=== PATIENT | male | born 1960 | race Caucasian/White ===

== ENCOUNTER 2019-05-29 06:44 | Outpatient (CLI) | payer OTHER, SELFPAY ==
--- NOTE | 2019-05-29 | USCV_ITS ---
Elmer Ortiz Age: 59 Gender: M : 1960 Exam Date: 05/29/2019 08:08 Ordering Phys: Elmer Lucero MD Technologist: Exam Location: [facility] [place] Indication: HTN BP: 124 / 72 HR: 65 Rhythm: Sinus Technical Quality: Adequate MEASUREMENTS (Male / Female) Normal Values 2D ECHO LV Diastolic Diameter PLAX 4.9 cm 4.2 - 5.9 / 3.9 - 5.3 cm LV Systolic Diameter PLAX 3.7 cm IVS Diastolic Thickness 1.1 cm 0.6 - 1.0 / 0.6 - 0.9 cm IVS Systolic Thickness 1.2 cm LVPW Diastolic Thickness 0.9 cm 0.6 - 1.0 / 0.6 - 0.9 cm LVPW Systolic Thickness 1.6 cm LVOT Diameter 2.2 cm LV Ejection Fraction 2D Teich 48.4 % LV Ejection Fraction MOD 2C 32.0 % LV Ejection Fraction 2C AL 29.5 % LA Diameter 3.4 cm LA Width 4.7 cm LA Height 4.4 cm RA Width 3.8 cm RA Height 4.9 cm Aorta at Sinotubular Diameter 2.9 cm M-MODE LV Diastolic Diameter MM 5.5 cm 4.2 - 5.9 / 3.9 - 5.3 cm LV Systolic Diameter MM 3.7 cm LV Ejection Fraction MM Teich 59.1 % IVS Diastolic Thickness MM 0.9 cm 0.6 - 1.0 / 0.6 - 0.9 cm IVS Systolic Thickness MM 1.4 cm LVPW Diastolic Thickness MM 1.0 cm 0.6 - 1.0 / 0.6 - 0.9 cm LVPW Systolic Thickness MM 1.6 cm RV Diastolic Diameter MM 2.4 cm Aortic Annulus Diameter 3.3 cm LA Ao Ratio MM 1.0 MV E Point Septal Separation 0.6 cm DOPPLER AV Peak Velocity 106.0 cm/s LVOT Peak Velocity 80.0 cm/s AV Area Cont Eq vti 3.2 cm squared AV Area Cont Eq pk 2.8 cm squared MV Area PHT 5.1 cm squared Mitral E to A Ratio 0.9 MV E' Velocity 7.0 cm/s Mitral E to MV E' Ratio 7.5 Mitral E to LV E' Lateral Ratio 8.9 Mitral E to LV E' Septal Ratio 6.5 TR Peak Velocity 145.0 cm/s TR Peak Gradient 8.4 mmHg TV Peak E Velocity 90.0 cm/s Right Atrial Pressure 3.0 mmHg Pulmonary Artery Systolic Pressu 11.4 mmHg FINDINGS Left Ventricle Normal left ventricular cavity size. Normal left ventricular systolic function. No regional wall motion abnormalities. Left ventricular ejection fraction is estimated at 59 %. Normal diastolic function. Right Ventricle The right ventricle is normal in size and function. Right Atrium The right atrium is normal in size. Left Atrium The left atrium is normal in size. Mitral Valve Structurally normal mitral valve without significant stenosis or prolapse. There is no mitral regurgitation. Aortic Valve Structurally normal aortic valve without significant sclerosis or stenosis. There is no aortic regurgitation. Tricuspid Valve Structurally normal tricuspid valve without significant stenosis or regurgitation. Pulmonary artery systolic pressure is normal. Pulmonic Valve Structurally normal pulmonic valve without significant stenosis. There is no pulmonic regurgitation. Pericardium Normal pericardium without effusion. Aorta Normal ascending aorta dimension. CONCLUSIONS 1-Normal left ventricular cavity size. Normal left ventricular systolic function. No regional wall motion abnormalities. Left ventricular ejection fraction is estimated at 59 %. Normal diastolic function. 2-No significant valve abnormalities. 3-There is no pericardial effusion. 4-Pulmonary artery systolic pressure is within normal limits. 5-No significant change since the prior echocardiogram study of 04/02/2018. Jefferson Durbin MD (Electronically Signed) Final Date: 29 May 2019 12:53 S
== END 2019-05-29 06:45 | disposition home or self-care (01) ==
LOC: RAD 06:52
PROVIDERS: Family Provider Nurse Practitioner Family; PCP Family Medicine; Visit Provider Family Medicine
DX: I10 Essential (primary) hypertension (principal)
CPT/HCPCS: 93306

== ENCOUNTER 2020-07-20 12:37 | Emergency (ER) | payer OTHER, SELFPAY ==
[2020-07-20 12:55] VITALS: BP 147/83; PULSE 85; RESP 18; TEMP 36.7; O2SAT 98; BMI 34.8
--- NOTE | 2020-07-20 12:56 | XRR_ITS ---
PROCEDURE INFORMATION: Exam: XR Left Hand Exam date and time: 07/20/2020 12:57 PM Age: 60 years old Clinical indication: Injury or trauma; Other: Nail gun; Puncture; Left; Index finger and middle finger; Additional info: Nail through fingers TECHNIQUE: Imaging protocol: XR Left hand. Views: 3 or more views. COMPARISON: No relevant prior studies available. FINDINGS: Bones/joints: A metal nail extends transversely through the index and middle fingers across the shafts of the proximal phalanxes. Soft tissues: Soft tissue swelling. XR/XR hand LT min 3V* [id number] IMPRESSION: A metal nail extends transversely through the index and middle fingers at the level of the mid shaft of the proximal phalanxes.
--- NOTE | 2020-07-20 13:24 | W.ED.EXTPRO ---
Documented by User: JUVENAL Victoria 07/20/20 18:27 HPI - Extremity Problem General: Chief complaint: Extremity Injury, Upper Stated complaint: NAIL THROUGH LEFT HAND Time Seen by Provider: 07/20/20 13:08 [facility] PFSH: Medical History CAD (coronary artery disease) Hyperlipidemia Family History Other Alcohol abuse CAD (coronary artery disease) CHF (congestive heart failure) Diabetes Myocardial infarction Osteoarthritis Stroke Social History Smoking and tobacco status: former smoker Alcohol intake: never Procedures Nerve Block Nerve Block 1: Time out performed: Yes Local Anesthetic: lidocaine 1% Amount of anesthesia used (mL): 10 Side: left Nerve Blocks: digital (3rd finger) Procedure Successful: Yes Patient Tolerated Procedure: well Complications: none Nerve Block 2: Time out performed: Yes Local Anesthetic: lidocaine 1% Amount of anesthesia used (mL): 10 Side: left Nerve Blocks: digital (2nd finger, digit) Procedure Successful: Yes Patient Tolerated Procedure: well Complications: none Course Vital Signs: Vital signs: Vital Signs Temperature 98.1 F 07/20/20 12:55 Pulse Rate 85 07/20/20 12:55 Respiratory Rate 16 07/20/20 14:30 Blood Pressure 147/83 07/20/20 12:55 Pulse Oximetry 98 07/20/20 12:55 Discharge Plan Discharge Patient Disposition: Home Clinical Impression: Foreign body (FB) in soft tissue, Need for tetanus, diphtheria, and acellular pertussis (Tdap) vaccine Condition: Stable Prescriptions: New oxycodone 5 mg tablet 5 mg PO Q6H PRN (Reason: pain) Qty: 10 RF: 0 Keflex 500 mg capsule 500 mg PO BID 7 Days Qty: 28 RF: 0 No Action fluoxetine 60 mg tablet 60 mg PO DAILY@0900 RF: 0 nitroglycerin [Nitrostat] 0.4 mg tablet, sublingual 0.4 mg SUBLINGUAL Q5M PRN (Reason: CHEST PAINS) RF: 0 clonazepam 1 mg tablet 1 mg PO DAILY@2100 RF: 0 gabapentin 300 mg capsule 300 mg PO DAILY@2100 RF: 0 prasugrel 10 mg tablet 10 mg PO DAILY@0900 RF: 0 ibuprofen 200 mg Tablet 200 mg PO Q6H PRN (Reason: Pain) RF: 0 metoprolol succinate 25 mg tablet extended release 24 hr 12.5 mg PO DAILY@2100 RF: 0 ezetimibe 10 mg tablet 10 mg PO DAILY@0900 RF: 0 Discharge Orders: Discharge ED (Routine); Ordered 07/20/20 Ordered By: Katelin Heath Referrals: Nadine Cornell NP [Family Provider] - Elmer Lucero MD [Primary Care Provider] - Discharge Diet: Usual diet Discharge Activity: Limit activity as instructed Patient Instructions: Soft Tissue Foreign Body (ED), Puncture Wound (ED), Contusion in Adults (ED), Opioid Safety, Sling - Wearing Activity Restrictions/Additional Instructions: 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 Kendall for wound recheck. He will need to keep the left hand elevated as much as possible, swelling is expected but should never be red or with increased pain. Elevation of the hand will help with swelling and pain. Limit use of the left hand until follow-up with Dr. Kendall If you develop fever, redness increased swelling and pain of the right left hand, you will need to return to the emergency department. May wash briefly with soap and water, use bottled water as well water can have contaminants. May leave open to air if not draining, may wrap if needed loosely Avoid constriction, such as tight clothing tight dressing or other items that can cause swelling to the hand. Take antibiotics until all gone, even if feeling better Coding Level of Care Code ED Marketing Project Coordinator for Chg Fwd Exam Detailed Documented by User: Yuli Rojas MD 07/21/20 19:46 HPI - Extremity Problem General: Chief complaint: Extremity Injury, Upper Stated complaint: NAIL THROUGH LEFT HAND Time Seen by Provider: 07/20/20 13:08 Source: patient History of Present Illness: HPI Narrative: 60-year-old male came to the ED by POV shortly after he accidentally discharged his nail gun, nailing his second and third finger together with a 4 inch nail. He still had movement and sensation of all his fingers immediately after the accident. . His tetanus shot is not up-to-date. On prasugrel daily for CAD. Associated symptoms: Deny chest pain, fever(s) or rash Review of Systems General: Reports: 10 or more systems reviewed and unremarkable except in HPI and below Const: Denies: fever(s), chills or body aches Eyes: Denies: change in vision or blurry vision Card: Denies: chest pain, palpitations or irregular heart rhythm GI: Denies: nausea or vomiting Musc: Reports: extremity pain; Denies: neck pain, back pain or extremity swelling Skin/Breast: Denies: rash, pruritus or erythema Neuro: Denies: headache(s), numbness in extremities, weakness in extremities, dizziness or confusion Wilman/Lymph: Denies: easy bruising or easy bleeding PFS ED PFSH: Medical History CAD (coronary artery disease) Hyperlipidemia Family History Other Alcohol abuse CAD (coronary artery disease) CHF (congestive heart failure) Diabetes Myocardial infarction Osteoarthritis Stroke Social History Smoking and tobacco status: former smoker Alcohol intake: never Physical Exam Const: COMMON NORMALS: no acute distress, patient oriented x3 and alert EXAM LIMITATIONS: no altered mental status GENERAL APPEARANCE: cooperative and comfortable; not in distress, not lethargic, not ill appearing and no odor of alcohol detected ORIENTATION/CONSCIOUSNESS: not lethargic HENMT: COMMON NORMALS: normocephalic and atraumatic HEAD & SCALP: normocephalic and atraumatic FACE & SINUS: face symmetric Eye: COMMON NORMALS: Equal, round and reactive pupils present, EOMs intact bilaterally and conjunctivae normal CONJUNCTIVA: Yes conjunctivae normal PUPIL: Yes Equal, round and reactive pupils present Resp: COMMON NORMALS: normal respiratory effort EFFORT & INSPECTION: No tachypneic, No respiratory distress and No labored Extremity: LEFT UPPER EXTREMITY: Yes hand & digits (No active bleeding.) Left hand and digits: Yes inspection (Nail impaled through the volar aspects of the 2nd and 3rd prox phala) and Yes neurovascular exam (Fingers well perfused, sensation intact, movement limited by nail) Neuro: COMMON NORMALS: patient oriented x3 SENSORIUM/ORIENTATION: Yes alert and No lethargic Procedures Foreign Body Removal Time Out Performed: yes Site: left and hand Description of foreign body: other (Nail) Sedation/Analgesia: other (Local anesthesia) Technique: manual removal and removal with forceps Confirmed by:: radiograph Complications: none Post-procedure exam: awake, alert Neurovascular: normal distal pulse and normal capillary fill Course Vital Signs: Vital signs: Vital Signs Temperature 98.1 F 07/20/20 12:55 Pulse Rate 85 07/20/20 12:55 Respiratory Rate 16 07/20/20 14:30 Blood Pressure 147/83 07/20/20 12:55 Pulse Oximetry 98 07/20/20 12:55 MDM - Extremity (Nontraumatic) MDM Narrative: Medical decision making narrative: I performed an independent examination of this patient, and performed removal of the nail from the second and third left fingers. Patient tolerated the procedure well. He will be on antibiotics and will follow up with hand surgery in the next few days. Tetanus booster administered. Discharge Plan Discharge Patient Disposition: Home Clinical Impression: Foreign body (FB) in soft tissue, Need for tetanus, diphtheria, and acellular pertussis (Tdap) vaccine Condition: Stable Prescriptions: New oxycodone 5 mg tablet 5 mg PO Q6H PRN (Reason: pain) Qty: 10 RF: 0 Keflex 500 mg capsule 500 mg PO BID 7 Days Qty: 28 RF: 0 No Action fluoxetine 60 mg tablet 60 mg PO DAILY@0900 RF: 0 nitroglycerin [Nitrostat] 0.4 mg tablet, sublingual 0.4 mg SUBLINGUAL Q5M PRN (Reason: CHEST PAINS) RF: 0 clonazepam 1 mg tablet 1 mg PO DAILY@2099 RF: 0 gabapentin 300 mg capsule 300 mg PO DAILY@2100 RF: 0 prasugrel 10 mg tablet 10 mg PO DAILY@0900 RF: 0 ibuprofen 200 mg Tablet 200 mg PO Q6H PRN (Reason: Pain) RF: 0 metoprolol succinate 25 mg tablet extended release 24 hr 12.5 mg PO DAILY@2100 RF: 0 ezetimibe 10 mg tablet 10 mg PO DAILY@0900 RF: 0 Discharge Orders: Discharge ED (Routine); Ordered 07/20/20 Ordered By: Katelin Heath Referrals: Nadine Cornell NP [Family Provider] - Elmer Lucero MD [Primary Care Provider] - Discharge Diet: Usual diet Discharge Activity: Limit activity as instructed Patient Instructions: Soft Tissue Foreign Body (ED), Puncture Wound (ED), Contusion in Adults (ED), Opioid Safety, Sling - Wearing Activity Restrictions/Additional Instructions: 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 Kendall for wound recheck. He will need to keep the left hand elevated as much as possible, swelling is expected but should never be red or with increased pain. Elevation of the hand will help with swelling and pain. Limit use of the left hand until follow-up with Dr. Kendall If you develop fever, redness increased swelling and pain of the right left hand, you will need to return to the emergency department. May wash briefly with soap and water, use bottled water as well water can have contaminants. May leave open to air if not draining, may wrap if needed loosely Avoid constriction, such as tight clothing tight dressing or other items that can cause swelling to the hand. Take antibiotics until all gone, even if feeling better Coding Level of Care Code ED Marketing Project Coordinator for Chg Fwd Exam Detailed
--- NOTE | 2020-07-20 14:08 | XRR_ITS ---
PROCEDURE INFORMATION: Exam: XR Left Hand Exam date and time: 07/20/2020 2:47 PM Age: 60 years old Clinical indication: Trauma with nail gun. Puncture involving left index and middle fingers. Status post foreign body removal. TECHNIQUE: Imaging protocol: XR Left hand. Views: 3 or more views. COMPARISON: CR XR hand LT min 3V* [id number] 07/20/2020 1:11 PM FINDINGS: There has been interval removal of a nail that previously extended through the proximal phalanges of the index and 3rd fingers. There are tiny residual metallic foreign bodies in the volar soft tissues. There is a tiny fracture fragment along the ulnar aspect of the mid-diaphysis of the proximal phalanx of the 3rd finger. Mild scattered degenerative changes. The scapholunate and lunotriquetral intervals are maintained. No chondrocalcinosis is seen. XR/XR hand LT 2V [id number] IMPRESSION: There has been interval removal of a nail that previously extended through the proximal phalanges of the index and 3rd fingers. There are tiny residual metallic foreign bodies in the volar soft tissues. There is a tiny fracture fragment along the ulnar aspect of the mid-diaphysis of the proximal phalanx of the 3rd finger.
[2020-07-20] MEDS: cephALEXin 500 mg Capsule PO (14:09)
[2020-07-20] MEDS: tetanus-dipt-pertussis 0.5 mL SDV IM (14:10)
[2020-07-20] MEDS: lidocaine 1% INJ 20 mL INJECTION ×2 (14:23→14:32)
[2020-07-20 14:30] VITALS: RESP 16
[2020-07-20] MEDS: oxyCODONE-APAP 5-325 mg Tablet 1 TAB PO (14:30)
--- NOTE | 2020-07-22 08:48 | DCPLANNER ---
general manager in training had message to schedule a followup appointment for patient with ortho. general manager in training called the ortho clinic, spoke with Manda, gave clinic patients information. general manager in training was told that patients information would be printed and reviewed. Clinic will call patient with appointment information.
--- NOTE | 2020-07-24 14:01 | DCPLANNER ---
Patient had a follow up appointment scheduled for 07.23.[address] Kendall at [facility] - patient did attend appointment.
== END 2020-07-20 15:04 | disposition home or self-care (01) ==
PROVIDERS: Emergency Provider Family Medicine; Family Provider Nurse Practitioner Family; PCP Family Medicine
DX: S61.442A Puncture wound with foreign body of left hand, initial encounter (principal); W29.4XXA Contact with nail gun, initial encounter; Z23 Encounter for immunization; I25.10 Atherosclerotic heart disease of native coronary artery without angina pectoris; E78.5 Hyperlipidemia, unspecified; Z87.891 Personal history of nicotine dependence
CPT/HCPCS: 73120; 73130; 90471; 90715; 99283

== ENCOUNTER → 2021-01-24 12:58 | Outpatient (BNVA) | payer OTHER, SELFPAY | PROVIDERS: Family Provider Nurse Practitioner Family; PCP Family Medicine; Visit Provider Nurse Practitioner Family | DX: Z20.822 Contact with and (suspected) exposure to COVID-19 (principal) | CPT/HCPCS: 87426; 87635 ==

== ENCOUNTER 2021-06-23 11:35 | Outpatient (CLI) | payer OTHER, SELFPAY ==
--- NOTE | 2021-06-23 11:50 | XR_ITS ---
WS: [id number] XR chest 2V* [id number] REASON FOR EXAM: SHORTNESS OF BREATH FINDINGS: Chest appears relatively unchanged compared to 05/02/2019. Moderate tortuosity the thoracic aorta wit hout aneurysmal dilatation. Calcified granulomatous disease in both hemithoraces and the mediastinum. No acute pulmonary parenchy mal or pleural abnormality is identified. Bone density appears somewhat decreased for age. Mild changes of degenerative spondylosis in the mid and lower thoracic spine. XR/XR chest 2V* [id number] IMPRESSION: No acute chest abnormality.
== END 2021-06-23 11:36 | disposition home or self-care (01) ==
PROVIDERS: PCP Nurse Practitioner Family; Visit Provider Nurse Practitioner Family
DX: R06.02 Shortness of breath (principal)
CPT/HCPCS: 71046

== ENCOUNTER → 2022-09-28 07:43 | Outpatient (BNVA) | payer OTHER, SELFPAY | PROVIDERS: PCP Family Medicine; Visit Provider Specialist | DX: M17.11 Unilateral primary osteoarthritis, right knee (principal) | CPT/HCPCS: 99204 ==

== ENCOUNTER → 2022-09-28 07:48 | Outpatient (BNVA) | payer OTHER, SELFPAY | PROVIDERS: PCP Family Medicine; Visit Provider Specialist | DX: M17.11 Unilateral primary osteoarthritis, right knee (principal); M25.561 Pain in right knee; Z01.818 Encounter for other preprocedural examination | CPT/HCPCS: 73560; 73565 ==

== ENCOUNTER → 2022-09-30 11:25 | Outpatient (BNVA) | payer OTHER, SELFPAY | PROVIDERS: PCP Family Medicine; Visit Provider Internal Medicine Cardiovascular Disease | DX: Z01.810 Encounter for preprocedural cardiovascular examination (principal); I25.10 Atherosclerotic heart disease of native coronary artery without angina pectoris; E78.49 Other hyperlipidemia; M17.11 Unilateral primary osteoarthritis, right knee; F17.220 Nicotine dependence, chewing tobacco, uncomplicated | CPT/HCPCS: 99213 ==

== ENCOUNTER 2022-10-15 09:15 | Outpatient (CLI) | payer OTHER, SELFPAY ==
--- NOTE | 2022-10-15 09:30 | CT_ITS ---
WS: [id number] CT RIGHT KNEE, NONCONTRAST TECHNIQUE: Noncontrast CT of the RIGHT knee to include the RIGHT hip and ankle. [facility] CLINICAL INFORMATION: Right knee replacement with NANCY guidance COMPARISON: None. DLP: 948.[address] scans at [facility] use at least one of these dose optimization techniques: automated e xposure control; mA and/or kV adjustment per patient size (includes targeted exams where dose is matc hed to clinical indication); or iterative reconstruction. FINDINGS: Mild degenerative narrowing both hips. Normal pubic rami. Normal sigmoid colon. Prostate calcificatio n. Prostate measures 4.0 cm. Vascular calcification. Advanced osteoarthritis RIGHT knee with bone-on- bone articulation. Hypertrophic Patella. Moderate suprapatellar effusion. Soft tissue edema.Hypertrop hic changes along the joint line. CT/CT knee RT wo con* [id number] IMPRESSION: Images obtained for preoperative purposes.
== END 2022-10-15 09:16 | disposition home or self-care (01) ==
PROVIDERS: PCP Family Medicine; Visit Provider Specialist
DX: M17.11 Unilateral primary osteoarthritis, right knee (principal)
CPT/HCPCS: 73700; 99204

== ENCOUNTER 2022-10-27 06:59 | Outpatient (CLI) | payer OTHER, SELFPAY | END 2022-10-27 07:00 | disposition home or self-care (01) | LOC: RT 10-30 07:00 | PROVIDERS: PCP Family Medicine; Visit Provider Specialist | DX: Z01.818 Encounter for other preprocedural examination (principal) | CPT/HCPCS: 93005 ==

== ENCOUNTER → 2022-10-27 10:06 | Outpatient (BNVA) | payer OTHER, SELFPAY | PROVIDERS: PCP Family Medicine; Visit Provider Clinical Nurse Specialist Adult Health | DX: Z01.818 Encounter for other preprocedural examination (principal); M17.11 Unilateral primary osteoarthritis, right knee; I25.10 Atherosclerotic heart disease of native coronary artery without angina pectoris; E78.49 Other hyperlipidemia | CPT/HCPCS: 81000 ==

== ENCOUNTER 2022-11-03 14:25 | Observation (INO) | payer OTHER, SELFPAY ==
[2022-10-27 11:40] VITALS: BMI 34.4
--- NOTE | 2022-10-27 11:49 | ECG_ITS ---
[facility] Test Date: 2022-10-27 Pat Name: Elmer Ortiz Department: Room: Gender: Male [employer]: : 1960 Requested By: Laura Nelson Order Number: [id number] Madrid MD: Noni Riley M.D. Measurements Intervals [place] Rate: 89 P: 0 OK: 182 QRS: -33 QRSD: 94 T: 51 QT: 342 QTc: 416 Interpretive Statements SINUS RHYTHM LEFT AXIS DEVIATION [QRS AXIS < -30] No previous ECG available for comparison Electronically Signed On 10-27-2022 16:52:30 CDT by Noni Riley M.D. [id number]
--- NOTE | 2022-10-27 12:02 | P.ANESASSM_ITS ---
Pre-Anesthetic Assessment Height/Weight: Height 1.82 m Weight 113.398 kg Operation Date: 11/03/22 07:00 Proposed Procedures p RIGHT TOTAL KNEE ARTHROPLASTY WITH NANCY 13700,M17.10(Right) - Zuleima Rodrigez MD Familial anesthetic complications: None Social Tobacco and No alcohol Airway Mallampati: Class III Dentition: partials CV/HEM Coronary Artery Disease (5 stents ) GI Gastroesophageal Reflux Disease Metabolic Hyperlipidemia Anesthetic Plan ASA status: 3 Anesthesia: MAC and Regional (specify below) Risk of > 500 ml blood loss (7ml/kg in children): No Medications/Allergies Home Medications Medication Instructions Recorded Confirmed Last Taken Type nitroglycerin 0.4 mg sublingual 0.4 mg sublingual Q5M PRN CHEST 10/18/19 10/27/22 Unknown History tablet (Nitrostat) PAINS ezetimibe 10 mg tablet 10 mg PO DAILY@0900 #90 tabs 12/03/20 10/27/22 1 Day Ago Rx ~10/26/22 fluticasone propionate 50 2 spray intranasal DAILY 6 months 07/07/21 10/27/22 Unknown Rx mcg/actuation nasal #16 grams spray,suspension clonazepam 1 mg tablet (Klonopin) 1 mg PO DAILY PRN anxiety #30 tabs 06/03/22 10/27/22 1 Day Ago Rx ~10/26/22 prasugrel 10 mg tablet See Rx Instructions .Route 08/18/22 10/27/22 1 Day Ago Rx .COMPLEX #90 tabs ~10/26/22 fluoxetine 20 mg capsule See Rx Instructions .Route 09/16/22 10/27/22 10/27/22 Rx .COMPLEX #270 caps gabapentin 300 mg capsule 600 mg PO DAILY@2100 09/30/22 10/27/22 1 Day Ago History ~10/26/22 Allergies Allergy/AdvReac Type Severity Reaction Status Date / Time hydrocodone [From Vicodin] Allergy ADR-Agitate Verified 10/27/22 11:35 d clopidogrel [From Plavix] AdvReac Severe dermatitis Verified 10/27/22 11:35 simvastatin AdvReac Intermediate dermatitis Verified 10/27/22 11:35 [facility] Anesthesia Medical History Anxiety CAD (coronary artery disease) Depression GERD (gastroesophageal reflux disease) History of deviated nasal septum Hyperlipidemia Osteoarthritis Status post left heart catheterization Surgical History History of nasal surgery S/P cataract surgery S/P hernia repair S/P knee surgery Family History Other Alcohol abuse CAD (coronary artery disease) CHF (congestive heart failure) Diabetes Myocardial infarction Osteoarthritis Stroke Social History (Updated 10/27/22 @ 09:15 by Ottoniel Moffett NP) Smoking and tobacco status: current every day smoker smokeless tobacco Smokeless tobacco user: chewing tobacco Alcohol intake: never Desire information about alcohol rehabilitation?: No Substance/Drug Use: never Desire information about substance/drug rehabilitation?: No Data Anesthesia Cardiac Studies: Echocardiogram Ultrasound 05/29/19
[2022-11-03] VITALS (18 sets, daily range): BP systolic 89–130; BP diastolic 56–90; PULSE 69–92; RESP 12–18; TEMP 36.3–36.8; O2SAT 91–99
[2022-11-03] MEDS: sodium chloride 0.9% 1,000 ML 30 ML IV (08:53)
[2022-11-03] MEDS: CELEcoxib 200 mg Capsule 400 MG PO (08:55)
[2022-11-03] MEDS: acetaminophen 1,000 MG/100 ML PIGGYBACK 400 MG IV ×2 (08:56→17:23)
[2022-11-03] MEDS: gabapentin 300 mg Capsule PO (09:18)
--- NOTE | 2022-11-03 10:10 | P.HPUD_ITS ---
Surgery/Procedure H&P Update DATE OF PROCEDURE: November 03, 2022 DATE H&P PERFORMED: 10/27/22 H&P UPDATE INFORMATION: I have reviewed H&P completed within last 30 days, I have examined patient prior to procedure, No changes to prior documentation and H&P is in [facility] EMR on date indicated PLANNED PROCEDURE: Operation Date: 11/03/22 09:55 Proposed Procedures p RIGHT TOTAL KNEE ARTHROPLASTY WITH NANCY 65571,M17.10(Right) - Zuleima Rodrigez MD Related Problem List Diagnoses (1) Primary osteoarthritis of right knee:
[2022-11-03] MEDS: ceFAZolin 2,000 MG in sodium chloride 0.9% (plus) 50 ML 100 MG IV ×2 (10:19→18:04)
[2022-11-03] MEDS: tranexamic acid 1,000 mg/10mL SDV 1000 MG IV (11:01)
[2022-11-03] MEDS: vancomycin 1,000 MG SDV 1000 MG INTRA-ARTI (12:21)
[2022-11-03] MEDS: ceFAZolin 1,000 mg SDV 2000 MG IRRIGATION (12:23)
--- NOTE | 2022-11-03 12:54 | ANES.PAUD2 ---
Pre-Anesthetic Update Pre-Anesthetic Assessment: Date of Surgery/Procedure: 11/03/22 Proposed Procedure: Operation Date: 11/03/22 09:55 Proposed Procedures p RIGHT TOTAL KNEE ARTHROPLASTY WITH NANCY 56232,M17.10(Right) - Zuleima Rodrigez MD Any changes to Pre-Anesthetic Assessment?: No Last Intake: Intake Last Liquid Date 11/02/22 Last Liquid Time 18:30 Last Solid Date 11/02/22 Last Solid Time 18:30 Vitals: Temperature 97.6 F 11/03/22 08:24 Temperature Source Temporal Artery S can 11/03/22 08:24 Pulse Rate 75 11/03/22 08:24 Respiratory Rate 18 11/03/22 08:24 Blood Pressure 130/90 11/03/22 08:24 Blood Pressure Vandana n 103 11/03/22 08:24 Pulse Oximetry 94 11/03/22 08:24 Oxygen Delivery Me thod Room Air 11/03/22 08:30 Exam: Pre-Anes Outpt Exam: alert, oriented x 3, clear to auscultation bilaterally and regular rate & rhythm Cardiac Studies: Echocardiogram Ultrasound 05/29/19 Anesthesia Procedures Nerve Block: Nerve Block 1: Main Anesthesia: spinal anesthesia block Time Out Performed: Yes Consent: requested by attending/covering physician, from patient, risks and benefits reviewed and patient agrees to proceed Nerve block location: adductor canal (right) Anesthesia monitors applied: pulse oximetry, EKG, BP cuff and oxygen Nerve block position: supine Anesthetic Used: ropivicaine 0.5% Amount of anesthesia used (mL): 20 Ultrasound used to: recognize landmarks Nerve Stimulator Used?: No Interscalene/Femoral BLK: 4 stimuplex 21 g needle used for position and inplane approach Injection: neg aspiration of heme Patient Tolerated Procedure: well Complications: none
--- NOTE | 2022-11-03 14:29 | XRR_ITS ---
PROCEDURE INFORMATION: Exam: XR Right Knee Exam date and time: 11/03/2022 1:43 PM Age: 62 years old Clinical indication: Device placement; Joint replacement hardware; Prior surgery; Surgery date: Post-operative (0-2 days); Surgery type: Right total knee arthroplasty TECHNIQUE: Imaging protocol: Radiologic exam of the right knee. Views: 3 views. COMPARISON: CT knee RT wo con* [id number] 10/15/2022 9:32 AM FINDINGS: Bones/joints: Patient has undergone placement of a right total knee prosthesis that appears in satisfactory position. Bone metal interface is unremarkable. There is no periprosthetic fracture. There is some residual loose bodies within the posterior aspect of the knee joint, stable. Soft tissues: There is generalized soft tissue swelling and joint effusion presumed secondary to the recent surgery. There is also some air in the soft tissues likely due to the recent surgery. XR/XR knee RT 3V* [id number] IMPRESSION: Recent right total knee replacement in satisfactory position.
--- NOTE | 2022-11-03 14:31 | PM.OP ---
Operative Report Date of procedure: November 03, 2022 Pre-op diagnosis: Primary osteoarthritis right knee with valgus deformity Post-op diagnosis: Primary osteoarthritis right knee with valgus deformity Post-op findings: Severe degenerative osteoarthritis with valgus deformity and complete denudement of cartilage. Procedure done: Right total knee arthroplasty with Steven guidance Implants: The [employer] total knee system with a size 6 triathlon beaded cruciate retaining femur right, a triathlon titanium tibial component size 6 beaded, a triathlon X3 tibial bearing CS insert size 6 X 12 mm and a beaded triathlon titanium asymmetric patella size 35 x 10 mm Specimens removed/disposition: Bone, disposed of Pathology: none sent Surgeon: Zuleima Rodrigez Intelligence Support Officer: [facility] operating room technicians Anesthesia: MAC (With spinal plus regional block) Estimated blood loss (mL): 500 Tourniquet time (min): 0 (Not utilized) IV fluids (mL): 1,500 Urine output (mL): 400 Complications: None Findings: Severe degenerative osteoarthritis with valgus deformity, large osteophytes, and complete cartilage loss particularly laterally. Condition: stable Disposition: PACU (Then to floor for postoperative rehabilitation) Brief History: Elmer Ortiz is a 62 year old male patient who is here today for right total knee arthroplasty. Patient states that his right knee has been painful for several years, but over the past 6 months his knee has been getting worse. Patient rated his pain at 5 out of 10 in clinic.? Pain inhibits patient from being able to: walking, bending knee, standing, up/down stairs, and pain wakes him up at night. He has significant limitations in his activities of daily living. He wished to proceed with right total knee arthroplasty. Risks and complications were discussed with him. Questions were answered, and consents were signed. Patient was seen and evaluated in the preop clinic as well regarding multiple medical issues. Procedure: The patient was brought to the operating theater, and after undergoing spinal anesthesia with MAC, ASA 3, as well as an adductor canal block, the right lower extremity was prepped with Dura-Prep and draped in usual fashion following placement of a tourniquet high on the leg. The leg was then draped free.? Tourniquet was not elevated during the case.? A surgical pause was performed, and at the time of the surgical pause, we confirmed the site and side of surgery. Additionally, we confirmed the appropriate and timely administration of preoperative antibiotics, Ancef 2 g and Transexemic acid 1 g.? The availability of equipment was confirmed, and the patient's identity was verbalized as well.? An additional transexemic acid 1 g will be given on the floor as well. Following the surgical pause, an incision was made centering over the patella continuing proximally and distally as necessary to allow access to the knee joint. Dissection continued through skin and soft tissues using a scalpel. Hemostasis was obtained using electrocautery. The skin incision was followed by a median parapatellar arthrotomy. The leg was extended and the patella was able to be displaced laterally with difficulty.? Medial release was initially accomplished to allow placement for the Steven array.? Appropriate arrays and markers were placed in appropriate position for use of the Steven.? Preoperative planning had been accomplished and was discussed in detail with the [facility] agricultural sales representative.? Intraoperative mapping of the femur and tibia was accomplished after the arrays were placed.? Internal markers were also placed.? Once we had accomplished the Steven mapping, we began the appropriate resections for placement of the prosthesis.? The plan was for a cruciate retaining right total knee arthroplasty. Once appropriate mapping had been accomplished retraction was established using manual retraction by surgical technicians and also the Steven leg positioner and retractors.? The knee was evaluated.? There was significant osteoarthritic change with significant osteophyte formation a significant valgus deformity.? Appropriate bone resection was accomplished using the Steven.? The femur was sized to a size 6.? Following femoral cuts, attention was directed to the tibia.? Osteophytes were removed prior to this portion of the procedure.? We had performed a medial release at the beginning of the procedure to allow for placement of the array and to allow for better planning with flexion and extension adjustments per Steven programming.? Proximal tibia was evaluated, and it was felt that appropriate size for the tibia was a size 6.? Tray was noted to fit nicely with good coverage.? Rim fit was accomplished with the size 6. A trial reduction was accomplished after osteophytes have been removed as well as the medial and lateral menisci.? We had removed the anterior cruciate ligament at the beginning of the case and preserved the posterior cruciate ligament.? Trial reduction was accomplished with a size 6 femoral cruciate retaining component and a size 6 CS tibial bearing insert which was initially a size 9 mm in thickness.? Sequential trials were accomplished with the final trial being a size 11 mm implant.? Final insert was a 12 mm implant.? Alignment was felt to be appropriate as well.? Trial components were removed after the femur had been drilled.? Prior to removal of the tibial tray which had been pinned in position with appropriate rotation as determined by the Steven plan, we broached the tibia.? Subsequently, the 4 drill holes were made for the prosthetic component.? All trial components were removed, and the wound was irrigated.? Plans were made for insertion of the prosthetic components.? Prior to this, the patella was manually prepared.? After resection of the articular surface with the jogging system, it was measured and measured a 35 mm patella.? We resected approximately 10 mm of patella.? Patellar height was restored with the patellar component. Once again, the wound was irrigated.? The Tritanium tibia was impacted into position.? The beaded femur was then impacted into position in a cementless fashion. The CS tibial insert was placed prior to placement of the femoral component. The patella was pressed into position with a patellar clamp.? Exparel was injected about the components deep and superficially.? The knee was then copiously irrigated with betadine and saline and suctioned dry. Further irrigation was accomplished with saline following the Betadine. Attention was then directed to closure. Closure was accomplished with 0 Vicryl in the fascial tissues.? This was followed by Surgiflo and vancomycin powder.? Following this, a 2-0 Monocryl was used in the subcutaneous tissues, and the skin was closed with skin crystal.? Care was taken to assure an excellent subcutaneous as well as skin closure.? A sterile dressing was then placed consisting of Dermabond Prineo, OpSite, sterile soft roll including over the foot, and an Choco wrap. The patient was returned the Recovery Room in a satisfactory condition. X-rays were obtained and reviewed there.? The patient will be discharged to the floor for postoperative rehabilitation and pain management. Related Problem List Diagnoses (1) Primary osteoarthritis of right knee:
[2022-11-03] MEDS: chlorhexidine gluconate 0.12% UDC 15 mL 30 ML MUCOUS MEM ×2 (17:25→21:02)
[2022-11-03] MEDS: sennosides-docusate Tablet 2 TAB PO (17:26)
[2022-11-03] MEDS: iron polysaccharide complex 150 mg Capsule PO (17:26)
[2022-11-03] MEDS: calcium carbonate 500 mg Chew Tablet 1000 MG PO (17:26)
--- NOTE | 2022-11-03 17:38 | ANE.PACU2 ---
Inpatient post-anesthesia follow up: Airway intact: Yes Vital signs: Temperature 97.3 F Pulse Rate 79 Respiratory Rate 16 Blood Pressure 115/76 Pulse Oximetry 96 Oxygen Delivery Me thod Room Air Oxygen Flow Rate Fraction of Inspir ed Oxygen Hydration adequate: Yes Nausea and vomiting: No Pain level: 1 Mental status: Baseline
[2022-11-03] MEDS: mupirocin oint 22 gm 1 APPLIC NASAL (18:03)
[2022-11-03] MEDS: CELEcoxib 200 mg Capsule PO (21:02)
[2022-11-03] MEDS: gabapentin 300 mg Capsule 600 MG PO (21:02)
[2022-11-03] MEDS: CLONazepam 1 mg Tablet PO (21:05)
[2022-11-03] MEDS: oxyCODONE 5 mg IR Tab/Cap PO (21:39)
[2022-11-04] VITALS (7 sets, daily range): BP systolic 108–118; BP diastolic 64–70; PULSE 79–91; RESP 16–18; TEMP 36.5–36.8; O2SAT 94–97
[2022-11-04] MEDS: acetaminophen 1,000 MG/100 ML PIGGYBACK 400 MG IV ×2 (00:12→08:39)
[2022-11-04] MEDS: ceFAZolin 2,000 MG in sodium chloride 0.9% (plus) 50 ML 100 MG IV ×2 (02:25→10:14)
[2022-11-04 04:56] LABS: Basophils # 0.1 10^3/uL (0.0-0.1); Basophils % 0.5 %; Eosinophils % 0.3 %; Hematocrit 39.2 % (42.0-52.0); Hemoglobin 12.9 g/dL (11.7-16.6); Lymphocytes % 19.6 %; Mean Corpuscular HGB Conc 32.9 g/dL (30.0-36.0); Mean Corpuscular Hemoglobin 31.7 pg (28.0-34.0); Mean Corpuscular Volume 96.3 fl (80-94); Mean Platelet Volume 9.1 fL (7.4-10.4); Monocytes # 1.4 10^3/uL (0.2-0.9); Neutrophils # 6.92 10^3/uL (1.8-7.7); Neutrophils % 66.3 %; Nucleated Red Blood Cells % 0 %; Platelet Count 279 10^3/cmm (130-400); Red Blood Count 4.07 10^6/uL (4.1-5.3); Red Cell Distribution Width 12.4 % (12.1-15.1); White Blood Count 10.4 10^3/uL (4.0-10.0)
[2022-11-04 05:23] LABS: Anion Gap 14.4 (5-19); Blood Urea Nitrogen 12 mg/dL (8-23); Calcium 8.3 mg/dL (8.5-10.5); Carbon Dioxide 22 mmol/L (22-29); Chloride 104 mmol/L (98-107); Glomerular Filtration Rate 98.3 mL/min (90-130); Glucose 109 mg/dL (65-115); Osmolality Calculated 282 mOsm/kg (285-295); Potassium 4.4 mmol/L (3.5-5.1); Sodium 136 mmol/L (136-145)
[2022-11-04] MEDS: oxyCODONE 5 mg IR Tab/Cap PO ×2 (05:27→10:11)
[2022-11-04] MEDS: aspirin 325 mg EC Tablet PO (08:23)
[2022-11-04] MEDS: sennosides-docusate Tablet 2 TAB PO (08:23)
[2022-11-04] MEDS: prasugrel 10 MG Tablet PO (08:23)
[2022-11-04] MEDS: iron polysaccharide complex 150 mg Capsule PO (08:23)
[2022-11-04] MEDS: CELEcoxib 200 mg Capsule PO (08:23)
[2022-11-04] MEDS: chlorhexidine gluconate 0.12% UDC 15 mL 30 ML MUCOUS MEM (08:24)
[2022-11-04] MEDS: ezetimibe 10 mg Tablet PO (08:24)
[2022-11-04] MEDS: fluoxetine 20 mg Capsule 60 MG PO (08:24)
[2022-11-04] MEDS: calcium carbonate 500 mg Chew Tablet 1000 MG PO (08:24)
[2022-11-04] MEDS: multivitamin therapeutic Tablet 1 TAB PO (08:31)
[2022-11-04] MEDS: cholecalciferol (vitamin D3) 1,000 unit Tablet 1000 UNIT PO (08:37)
[2022-11-04] MEDS: mupirocin oint 22 gm 1 APPLIC NASAL (08:38)
--- NOTE | 2022-11-04 13:11 | PM.DCS ---
Discharge Providers Date of Admission: 11/03/22 14:25 Date of Discharge: November 04, 2022 Attending Provider at Admission: Zuleima Rodrigez MD Attending Provider at Discharge: Zuleima Rodrigez MD Primary Care Provider: Tk Olivera DO Diagnoses at Discharge Discharge Diagnosis (1) Primary osteoarthritis of right knee: Status: Acute (2) Status post total right knee replacement not using cement: Status: Acute Permanent problem details: Date of procedure: November 03, 2022 Diagnosis: Primary osteoarthritis right knee with valgus deformity Procedure done: Right total knee arthroplasty with Steven guidance Implants: The [employer] total knee system with a size 6 triathlon beaded cruciate retaining femur right, a triathlon titanium tibial component size 6 beaded, a triathlon X3 tibial bearing CS insert size 6 X 12 mm and a beaded triathlon titanium asymmetric patella size 35 x 10 mm Reason for Visit Reason for Visit: M17.10 Brief History: Elmer Ortiz is a 62 year old male patient who is here today for right total knee arthroplasty. Patient states that his right knee has been painful for several years, but over the past 6 months his knee has been getting worse. Patient rated his pain at 5 out of 10 in clinic.? Pain inhibits patient from being able to: walking, bending knee, standing, up/down stairs, and pain wakes him up at night.? He has significant limitations in his activities of daily living.? He wished to proceed with right total knee arthroplasty.? Risks and complications were discussed with him.? Questions were answered, and consents were signed.? Patient was seen and evaluated in the preop clinic as well regarding multiple medical issues. Hospital Course Hospital Course Patient presented for right total knee arthroplasty. He was admitted under observation status following this procedure. He did well and on the first postoperative day, he was working with physical therapy. He was up and walking without issue. Pain was well managed. There was no evidence of DVT or other complication. After evaluation, the patient was discharged to home. He was neurologically intact and independent. Physical Exam Const: COMMON NORMALS: no acute distress, average body habitus, patient oriented x3 and alert GENERAL APPEARANCE: cooperative and comfortable ORIENTATION/CONSCIOUSNESS: Yes awake HENMT: COMMON NORMALS: normocephalic and atraumatic HEAD & SCALP: normocephalic and atraumatic Eye: GENERAL EYE: appearance normal, both eyes and all related structures Chest: COMMONS NORMALS: normal inspection of the chest Resp: COMMON NORMALS: normal respiratory effort EFFORT & INSPECTION: Yes able to speak in complete sentences and Yes symmetric chest movement Extremity: RIGHT LOWER EXTREMITY: Yes knee joint (Outer dressings are removed with OpSite remaining intact) Right knee: Yes inspection (Minimal to no drainage.), Yes palpation (No tenderness to palpation.), Yes neurovascular exam (Intact) and Yes other (Able to straight leg raise) Neuro: COMMON NORMALS: patient oriented x3 SENSORIUM/ORIENTATION: Yes alert Psych: COMMON NORMALS: mental status grossly normal APPEARANCE: Yes grossly normal ATTITUDE: Yes calm and Yes engaged ATTENTION/CONCENTRATION: Yes attention grossly intact Skin: COMMON NORMALS: no rashes or lesions noted GENERAL SKIN EXAM: no rashes or lesions noted Urinary Catheter Management: Pachceo: Cath Placed During This Visit: yes, but has since been removed by the nurse Reason for Continuing Indwelling Catheter: Decision to DC Catheter Urinary Catheter Date of Insertion: 11/03/22 Urinary Catheter Time of Insertion: 11:00 Date Urinary Catheter Removed: 11/03/22 Time Urinary Catheter Discontinued: 22:21 Discharge Data Studies Completed and Pending Completed Studies During Hospitalization Category Date Time Status XR knee RT 3V* [id number] Urgent Exams 11/03/22 14:29 Completed Radiology Impressions Knee X-Ray 11/03/22 14:29 IMPRESSION: Recent right total knee replacement in satisfactory position. Laboratory Results WBC 10.4 10^3/uL (4.0-10.0) H 11/04/22 04:17 RBC 4.07 10^6/uL (4.1-5.3) L 11/04/22 04:17 Hgb 12.9 g/dL (11.7-16.6) 11/04/22 04:17 Hct 39.2 % (42.0-52.0) L 11/04/22 04:17 MCV 96.3 fl (80-94) H 11/04/22 04:17 MCH 31.7 pg (28.0-34.0) 11/04/22 04:17 MCHC 32.9 g/dL (30.0-36.0) 11/04/22 04:17 RDW 12.4 % (12.1-15.1) 11/04/22 04:17 Plt Count 279 10^3/cmm (130-400) 11/04/22 04:17 MPV 9.1 fL (7.4-10.4) 11/04/22 04:17 Neut % (Auto) 66.3 % 11/04/22 04:17 Lymph % (Auto) 19.6 % 11/04/22 04:17 Crockett % (Auto) 13.0 % 11/04/22 04:17 Eos % (Auto) 0.3 % 11/04/22 04:17 Baso % (Auto) 0.5 % 11/04/22 04:17 Neut # (Auto) 6.92 10^3/uL (1.8-7.7) 11/04/22 04:17 Lymph # (Auto) 2.0 10^3/uL (0.8-4.8) 11/04/22 04:17 Crockett # (Auto) 1.4 10^3/uL (0.2-0.9) H 11/04/22 04:17 Eos # (Auto) 0.0 10^3/uL (0.0-0.8) 11/04/22 04:17 Baso # (Auto) 0.1 10^3/uL (0.0-0.1) 11/04/22 04:17 Nucleated RBC % (auto) 0 % 11/04/22 04:17 Nucleated RBCs # 0.0 /100WBC 11/04/22 04:17 Sodium 136 mmol/L (136-145) 11/04/22 04:17 Potassium 4.4 mmol/L (3.5-5.1) 11/04/22 04:17 Chloride 104 mmol/L (98-107) 11/04/22 04:17 Carbon Dioxide 22 mmol/L (22-29) 11/04/22 04:17 Anion Gap 14.4 (5-19) 11/04/22 04:17 BUN 12 mg/dL (8-23) 11/04/22 04:17 Creatinine 0.8 mg/dL (0.7-1.2) 11/04/22 04:17 GFR Calculation 98.3 mL/min (90-130) 11/04/22 04:17 Glucose 109 mg/dL (65-115) 11/04/22 04:17 Calculated Osmolality 282 mOsm/kg (285-295) L 11/04/22 04:17 Calcium 8.3 mg/dL (8.5-10.5) L 11/04/22 04:17 Vitals Last Vital Signs Temp 97.7 F 11/04/22 11:15 Pulse 91 11/04/22 11:15 Resp 18 11/04/22 11:15 BP 118/70 11/04/22 11:15 Pulse Ox 94 11/04/22 11:15 O2 Del Method Room Air 11/04/22 11:15 Discharge Plan Discharge Patient Disposition: Home Health Service Condition: Stable Prescriptions: New celecoxib 200 mg Capsule 200 mg PO 1XD 30 Days Qty: 30 0RF acetaminophen 500 mg Tablet 1,000 mg PO Q8H Qty: 90 0RF oxycodone 5 mg Tablet 5 mg PO Q4H PRN (Reason: Moderate Pain) 7 Days Qty: 30 0RF Continued nitroglycerin [Nitrostat] 0.4 mg tablet, sublingual 0.4 mg SUBLINGUAL Q5M PRN (Reason: CHEST PAINS) Rx Instructions: do not exceed 3 doses per episode gabapentin 300 mg capsule 600 mg PO DAILY@2100 fluticasone propionate 50 mcg/actuation spray,suspension 2 spray intranasal DAILY 180 Days Qty: 16 5RF Rx Instructions: administer into each nostril ezetimibe 10 mg tablet 10 mg PO DAILY@0900 Qty: 90 3RF clonazepam [Klonopin] 1 mg tablet 1 mg PO DAILY PRN (Reason: anxiety) Qty: 30 2RF prasugrel 10 mg tablet See Rx Instructions .ROUTE .COMPLEX Qty: 90 0RF Dose Instruction: TAKE 1 TABLET BY MOUTH ONCE DAILY AT 9AM Rx Instructions: TAKE 1 TABLET BY MOUTH ONCE DAILY AT 9AM fluoxetine 20 mg capsule See Rx Instructions .ROUTE .COMPLEX Qty: 270 0RF Dose Instruction: TAKE 3 CAPSULES BY MOUTH ONCE DAILY Rx Instructions: TAKE 3 CAPSULES BY MOUTH ONCE DAILY Discharge Orders: Discharge Order (Routine); Ordered 11/04/22 Ordered By: Zuleima Rodrigez Referrals: [facility] ([facility]) [Outside] Zuleima Rodrigez MD [Physician] - 11/17/22 8:15 am Discharge Diet: Advance as tolerated and Usual diet Discharge Activity: Resume usual activity, Increase activity as tolerated, Limit activity as instructed, Use walker/crutches as instructed and As per PT/OT instructions Patient Instructions: Oxycodone/Acetaminophen (By mouth), Celecoxib (By mouth), Knee Replacement (GEN), Joint Replacement Stoplight, Opioid Safety Activity Restrictions/Additional Instructions: Weightbearing as tolerated. Home health physical therapy for gait training, strengthening, and range of motion. Discharge Attestations Time Spent in Discharge Care*: greater than 30 min Specific Discharge Activities: educating patient, documenting/other paperwork and evaluating patient/reviewing data Quality Metrics Clinical Quality Measures [ No reported AMI, CVA or VTE this stay] Coding Level of Care Code Acute Code for Chg Fwd Diagnoses Primary osteoarthritis of right knee M17.11 Status post total right knee replacement not using cement Z96.651
== END 2022-11-04 13:55 | disposition home health service (06) ==
LOC: MEDSURG 14:45
PROVIDERS: Admitting Provider Specialist; PCP Family Medicine; Visit Provider Specialist
PROC: 8E0Y0CZ Robotic Assisted Procedure of Lower Extremity, Open Approach (ICD-10-PCS; CPT 27447; principal; 2022-11-03 09:55)
DX: M17.11 Unilateral primary osteoarthritis, right knee (principal); I25.10 Atherosclerotic heart disease of native coronary artery without angina pectoris; Z95.5 Presence of coronary angioplasty implant and graft; K21.9 Gastro-esophageal reflux disease without esophagitis; E78.5 Hyperlipidemia, unspecified; M19.90 Unspecified osteoarthritis, unspecified site; F17.220 Nicotine dependence, chewing tobacco, uncomplicated
CPT/HCPCS: 27447; 36415; 51702; 73562; 80048; 85025; 97110; 97116; 97161; 97165; 97530; C1776; C9290; G0378; J0131; J0690; J2704; J2795; J3370; J3490; J7030

== ENCOUNTER → 2022-11-10 09:44 | Outpatient (BNVA) | payer OTHER, SELFPAY | PROVIDERS: PCP Family Medicine; Visit Provider Nurse Practitioner Family | DX: R05.9 Cough, unspecified (principal) | CPT/HCPCS: 71046 ==

== ENCOUNTER → 2022-11-17 07:58 | Outpatient (BNVA) | payer OTHER, SELFPAY | PROVIDERS: PCP Family Medicine; Visit Provider Nurse Practitioner Family | DX: Z96.651 Presence of right artificial knee joint (principal) | CPT/HCPCS: 73560; 73565; 99024 ==

== ENCOUNTER 2022-12-01 06:43 | Outpatient (RCR) | payer OTHER, SELFPAY | END 2022-12-21 23:59 | disposition home or self-care (01) | LOC: SPT 06:43 | PROVIDERS: Visit Provider Specialist | DX: Z47.1 Aftercare following joint replacement surgery (principal); Z96.651 Presence of right artificial knee joint | CPT/HCPCS: 97110; 97161 ==

== ENCOUNTER 2022-12-15 10:01 | Outpatient (CLI) | payer OTHER, SELFPAY ==
--- NOTE | 2022-12-15 10:52 | CT_ITS ---
WS: [id number] LDCT LUNG CANCER SCREENING TECHNIQUE: Noncontrast CT of the chest with coronal and sagittal reformatted images. CLINICAL INFORMATION: HISTORY OF SMOKING COMPARISON: None. DLP: 112.82 mGy.cm DIvol: Mean CTDIvol: 2.70 (mGy) All CT scans at [facility] use at least one of these dose optimization techniques: automat ed exposure control; mA and/or kV adjustment per patient size (includes targeted exams where dose is matched to clinical indication); or iterative reconstruction. FINDINGS: Noncalcified RIGHT middle lobe nodule measuring 3 mm. Noncalcified nodule in the lingula 4m easuring 6 mm. Normal caliber thoracic aorta. Coronary calcification. No mediastinal or hilar lymphadenopathy. Calci fied subcarinal lymph nodes. No axillary lymphadenopathy. Small esophageal hiatal hernia. Adrenal glands are normal. CT/CT lung screening [id number] IMPRESSION: LUNG-RADS: 2-Benign Appearance or Behavior FOLLOW UP: 12 Month: Continue annual screening with LDCT
== END 2022-12-15 10:02 | disposition home or self-care (01) ==
PROVIDERS: PCP Family Medicine; Visit Provider Internal Medicine
DX: Z12.2 Encounter for screening for malignant neoplasm of respiratory organs (principal); Z87.891 Personal history of nicotine dependence; R05.3 Chronic cough
CPT/HCPCS: 71271; 94010; 94726; 94729

== ENCOUNTER → 2022-12-16 08:53 | Outpatient (BNVA) | payer OTHER, SELFPAY | PROVIDERS: PCP Family Medicine; Visit Provider Nurse Practitioner Family | DX: Z96.651 Presence of right artificial knee joint (principal) | CPT/HCPCS: 73560; 73565; 99024 ==

== ENCOUNTER → 2023-03-02 11:00 | Outpatient (BNVA) | payer OTHER, SELFPAY | PROVIDERS: PCP Family Medicine; Visit Provider Family Medicine | DX: F41.1 Generalized anxiety disorder (principal); N52.9 Male erectile dysfunction, unspecified; B44.1 Other pulmonary aspergillosis; J99 Respiratory disorders in diseases classified elsewhere; R06.02 Shortness of breath; G47.10 Hypersomnia, unspecified; R51.9 Headache, unspecified; R53.83 Other fatigue | CPT/HCPCS: 80053; 84443; 85025; 85651; 86140; 86606; 87305; 87798 ==

== ENCOUNTER → 2023-03-26 08:26 | Outpatient (BNVA) | payer OTHER, SELFPAY | PROVIDERS: PCP Family Medicine; Visit Provider Nurse Practitioner | DX: Z96.651 Presence of right artificial knee joint (principal); M17.11 Unilateral primary osteoarthritis, right knee | CPT/HCPCS: 73560; 73565; 99213 ==

== ENCOUNTER → 2023-04-06 16:07 | Outpatient (BNVA) | payer OTHER, SELFPAY | PROVIDERS: PCP Family Medicine; Referring Provider Nurse Practitioner Family; Visit Provider Internal Medicine Pulmonary Disease | DX: J42 Unspecified chronic bronchitis (principal); J30.2 Other seasonal allergic rhinitis; R53.83 Other fatigue; R40.0 Somnolence; Z72.0 Tobacco use | CPT/HCPCS: 71046; 99204 ==

== ENCOUNTER → 2023-04-23 09:21 | Outpatient (BNVA) | payer OTHER, SELFPAY | PROVIDERS: PCP Family Medicine; Visit Provider Internal Medicine Cardiovascular Disease | DX: I25.10 Atherosclerotic heart disease of native coronary artery without angina pectoris (principal); I10 Essential (primary) hypertension; E78.49 Other hyperlipidemia; F17.220 Nicotine dependence, chewing tobacco, uncomplicated | CPT/HCPCS: 99214 ==

== ENCOUNTER 2023-05-03 09:00 | Outpatient (CLI) | payer OTHER, SELFPAY | END 2023-05-03 09:01 | disposition home or self-care (01) | LOC: SLEEP 05-04 11:49 | PROVIDERS: PCP Family Medicine; Visit Provider Family Medicine | DX: G47.33 Obstructive sleep apnea (adult) (pediatric) (principal); G47.36 Sleep related hypoventilation in conditions classified elsewhere; G47.10 Hypersomnia, unspecified; R51.9 Headache, unspecified; R53.83 Other fatigue; R40.0 Somnolence | CPT/HCPCS: G0399 ==

== ENCOUNTER 2023-07-15 13:16 | Outpatient (CLI) | payer OTHER, SELFPAY ==
--- NOTE | 2023-07-15 13:30 | CT_ITS ---
WS: [id number] CTA HEAD AND NECK TECHNIQUE: Contrast enhanced CTA of the head and neck with coronal and sagittal reformatted images an d maximum intensity projection (MIP) images. NASCET criteria utilized. CLINICAL INFORMATION: Chronic headache, visual changes, Central sleep apnea COMPARISON: None. DLP: 1285.[address] scans at [facility] use at least one of these dose optimization techniques: automated e xposure control; mA and/or kV adjustment per patient size (includes targeted exams where dose is matc hed to clinical indication); or iterative reconstruction. FINDINGS: No evidence intracranial hemorrhage or mass effect. Ventricular system and basal cisterns a re patent. Minimal small vessel changes. Mild parenchymal volume loss. Sphenoid sinusitis. Mastoid ai r cells are well aerated. Normal posterior nasopharynx. RIGHT: RIGHT common carotid artery is patent. No significant RIGHT ICA stenosis. RIGHT ICA is patent to the skull base. LEFT: LEFT common carotid artery is patent. No significant LEFT ICA stenosis. LEFT ICA is patent to the skull base. Mild carotid bulb calcification. Both vertebral arteries are patent. LEFT dominant vertebral artery. Basilar artery is patent. Normal vascularity to the SHOE REPAIRER APPRENTICE territory bilaterally. Mild segmental stenosis LEFT proximal SHOE REPAIRER APPRENTICE territory. Di stal vessels remain patent. Both ICAs are patent at the skull base. Small RIGHT A1 segment. Normal vascularity to the JOSELINE territo ry. Normal vascularity to the MCA territory bilaterally. IMPRESSION: 1. No evidence of intracranial hemorrhage or mass effect. 2. No significant ICA stenosis bilaterally. 3. Both vertebral arteries are patent. LEFT dominant vertebral artery. 4. Mild stenosis LEFT proximal SHOE REPAIRER APPRENTICE territory. 5. No proximal flow-limiting stenosis or aneurysm.
[2023-07-15 13:54] LABS: Blood Urea Nitrogen 11 mg/dL (8-23); Glomerular Filtration Rate 85.5 mL/min (90-130)
[2023-07-15] MEDS: iohexol 350 mg/mL 500 mL Btl (per mL) IV (14:19)
== END 2023-07-15 13:17 | disposition home or self-care (01) ==
LOC: RAD 13:16
PROVIDERS: PCP Family Medicine; Visit Provider Family Medicine
DX: R51.9 Headache, unspecified (principal); G89.29 Other chronic pain; H53.9 Unspecified visual disturbance; G47.31 Primary central sleep apnea
CPT/HCPCS: 70496; 70498; 82565; 84520; Q9967

== ENCOUNTER 2023-07-20 07:51 | Outpatient (CLI) | payer OTHER, SELFPAY ==
[2023-07-20 08:02] VITALS: BMI 34.7
--- NOTE | 2023-07-20 08:07 | ECG_ITS ---
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 Interpretive Statements NAME OF STUDY: LEXISCAN SESTAMIBI STRESS TEST INDICATION: [chest pain; benton; cad] Procedure: At the baseline, the blood pressure was 122/77 mmHg with a heart rate of 78 bpm. The electrocardiogram showed normal sinus rhythm, normal axis with normal ST and T's. The Lexiscan was infused over a period of 20 seconds. A total of 0.4 mg of Lexiscan was infused. The stress phase was continued for a total of 5 minutes. Heart rate was at the end of stress phase was 96 bpm and a blood pressure of 124/69 mmHg. The EKG at the peak infusion revealed normal sinus rhythm with no significant ST-T wave changes. Sestamibi was injected 20 seconds after the Lexiscan infusion. Blood pressure at the end of recovery phase was 120/73 mmHg with a heart rate of 94bpm. Conclusion: 1. Normal EKG response to Lexiscan infusion 2. No Lexiscan induced chest pain or cardiac arrhythmia. 3. Normal blood pressure and heart rate response. 4. Sestamibi/sestamibi perfusion scan pending; see separate report. Electronically Signed On 08-05-2023 10:15:19 CDT by Hema Coto M.D. [email or web address]
--- NOTE | 2023-07-20 08:08 | NMCV_ITS ---
NM marisa perf SPECT r/s* [id number] Elmer Ortiz Age: 63 Gender: M : 1960 Exam Date: 07/20/2023 08:08 Ordering Phys: Tk Olivera DO Technologist: KITTY Avila Exam Location: [facility] Indications: ATHEROSCLEROTIC HEART DISEASE STRESS TEST Please see separate stress test report in [facility] for full findings IMAGE PROTOCOL Rest/Stress 1 Lexiscan Day Radiopharmaceutical Dose (mCi) Administration Site Administered by Rest: Tc-99m 10.8 IV KITTY Go Sestamibi Stress:Tc-99m 32.8 IV KITTY Go Sestamibi Rest: 20-Jul-2023 60 Discovery 630 Stress: 20-Jul-2023 30 Discovery 630 0.4mg Lexiscan. Images obtained in supine and prone position. SPECT RESULTS Technical Quality: Excellent Raw Data Analysis: Normal Image Corrections: No attenuation or motion correction applied Summed Stress Score: 2 Summed Rest Score: 7 Summed Difference Score: 0 PERFUSION FINDINGS There are small sized, fixed perfusion defects noted in the inferior and inferolateral gomez. 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 FUNCTIONAL RESULTS (calculated via Gated SPECT) Stress Image LV EF (%): 54 Stress EDV (mL):114 TID: 1.23 Stress ESV (mL):52 FUNCTIONAL FINDINGS: There is normal left ventricular systolic function. TID ratio is elevated with a value of 1.23. IMPRESSIONS 1. 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 LV systolic function is normal. 3. TID ratio is elevated with value of 1.23. This may represent subendocardial ischemia. Hema Coto MD (Electronically Signed) Final Date: 20 July 2023 11:38 S
[2023-07-20] MEDS: regadenoson 0.4 Mg/5 ml Syringe 0.400000000000000022 MG IVP (09:24)
[2023-07-20 09:36] VITALS: BP 123/72; PULSE 94
== END 2023-07-20 07:52 | disposition home or self-care (01) ==
PROVIDERS: PCP Family Medicine; Visit Provider Family Medicine
DX: I25.10 Atherosclerotic heart disease of native coronary artery without angina pectoris (principal); I25.2 Old myocardial infarction
CPT/HCPCS: 36415; 78452; 93017; 96374; A9500; J2785

== ENCOUNTER → 2023-08-06 11:13 | Outpatient (BNVA) | payer OTHER, SELFPAY | PROVIDERS: PCP Family Medicine; Visit Provider Internal Medicine Pulmonary Disease | DX: J82.83 Eosinophilic asthma (principal); J45.991 Cough variant asthma; G47.33 Obstructive sleep apnea (adult) (pediatric); F17.220 Nicotine dependence, chewing tobacco, uncomplicated | CPT/HCPCS: 99214 ==

== ENCOUNTER 2023-09-02 20:00 | Outpatient (CLI) | payer OTHER, SELFPAY | END 2023-09-02 20:01 | disposition home or self-care (01) | LOC: SLEEP 09-03 06:49 | PROVIDERS: PCP Family Medicine; Visit Provider Family Medicine | DX: G47.33 Obstructive sleep apnea (adult) (pediatric) (principal) | CPT/HCPCS: 95811 ==

== ENCOUNTER → 2023-12-27 08:03 | Outpatient (BNVA) | payer OTHER, SELFPAY | PROVIDERS: PCP Family Medicine; Visit Provider Nurse Practitioner | DX: Z96.651 Presence of right artificial knee joint (principal); Z47.1 Aftercare following joint replacement surgery | CPT/HCPCS: 73560; 73565 ==

== ENCOUNTER → 2024-06-13 09:09 | Outpatient (BNVA) | payer OTHER, SELFPAY | PROVIDERS: PCP Family Medicine; Visit Provider Family Medicine | DX: R05.9 Cough, unspecified (principal) | CPT/HCPCS: 87400; 87426 ==

== ENCOUNTER 2025-02-16 10:22 | Outpatient (CLI) | payer OTHER, SELFPAY ==
[2025-02-16 11:52] LABS: Hematocrit 45.1 % (37-53); Hemoglobin 15.20 g/dL (11.27-16.99); Mean Corpuscular HGB Conc 33.7 g/dL (30-55); Mean Corpuscular Hemoglobin 30.9 pg (27-33); Mean Corpuscular Volume 91.7 fl (82-101); Nucleated Red Blood Cells % 0 %; Platelet Count 314 10^3/cmm (157-399); Red Blood Count 4.92 10^6/uL (3.85-5.65); White Blood Count 7.00 10^3/uL (3.29-11.43)
[2025-02-16 12:19] LABS: Alanine Aminotransferase 16 U/L (0-41); Albumin Level 3.9 g/dL (3.5-5.2); Alkaline Phosphatase 81 U/L (40-130); Anion Gap 16.0 (5-19); Aspartate Amino Transferase 16 U/L (0-40); Blood Urea Nitrogen 13 mg/dL (8-23); Calcium 8.8 mg/dL (8.5-10.5); Carbon Dioxide 25 mmol/L (22-29); Chloride 103 mmol/L (98-107); Cholesterol 159 mg/dL (0-200); Free T4 Free Thyroxine 0.82 ng/dL (0.82-1.77); Globulin 3.3 g/dL (1.3-4.6); Glucose 135 mg/dL (65-115); HDL Cholesterol 35 mg/dL (60-100); Osmolality Calculated 292 mOsm/kg (285-295); Potassium 4.0 mmol/L (3.5-5.1); Sodium 140 mmol/L (136-145); Thyroid Stimulating Hormone 3.11 uIU/mL (0.27-4.20); Total Protein 7.2 g/dL (6.6-8.7); Triglycerides 179 mg/dL (0-150)
[2025-02-16 12:59] LABS: Vitamin B12 407 pg/mL (232-1245)
== END 2025-02-16 10:23 | disposition home or self-care (01) ==
PROVIDERS: PCP Family Medicine; Visit Provider Family Medicine
DX: G47.30 Sleep apnea, unspecified (principal); E78.49 Other hyperlipidemia; I25.10 Atherosclerotic heart disease of native coronary artery without angina pectoris; F41.1 Generalized anxiety disorder; F33.42 Major depressive disorder, recurrent, in full remission; E55.9 Vitamin D deficiency, unspecified; R79.89 Other specified abnormal findings of blood chemistry; Z12.5 Encounter for screening for malignant neoplasm of prostate
CPT/HCPCS: 36415; 80053; 80061; 82306; 82607; 84439; 84443; 85025; G0103